=== PATIENT | male | born 1980 | race Caucasian/White ===

== ENCOUNTER 2017-09-24 11:14 | Emergency (ER) | payer OTHER ==
[~2017-09-24] VITALS: Ht 177.8 cm; Wt 54.5 kg
[2017-09-24 11:38] VITALS: BP 115/58
== END 2017-09-24 13:13 | disposition home or self-care (01) ==
LOC: EME 11:14
DX: G89.29 Other chronic pain (principal); M54.9 Dorsalgia, unspecified; G71.0 Muscular dystrophy; Z76.0 Encounter for issue of repeat prescription; F17.200 Nicotine dependence, unspecified, uncomplicated
CPT/HCPCS: 99281; 99284